=== PATIENT | female | born 1980 | race Caucasian/White ===

== ENCOUNTER 2017-05-13 10:42 | Observation (INO) | payer OTHER ==
[2017-05-13] MEDS ORDERED: ONDANSETRON 4 MG/2 ML VIAL IVP STA (11:16)
[2017-05-13] MEDS ORDERED: MORPHINE SULFATE 4MG/4ML SYRG IV STA (11:16)
[2017-05-13] MEDS ORDERED: KETOROLAC 30 MG/ML 1 ML VIAL IVP STA (11:16)
[2017-05-13] MEDS ORDERED: SODIUM CHLORIDE 0.9% 1,000 ML IV STA ×2 (11:16)
--- NOTE | 2017-05-13 11:22 | ED ---
Chest Pain HPI - General Chief Complaint: Chest Pain Stated Complaint: Chest Pain Time Seen by Provider: 05/13/17 11:02 Source: patient Mode of arrival: wheelchair Limitations: no limitations - History of Present Illness Initial Comments: 36-year-old years old female presents with the chest pain, started 7 AM today she been nauseous and vomited once in the ER cold sweats but then he gets little more complicated she is also complaining about left-sided abdominal pain left flank pain radiating towards the left groin she does have a history of kidney stones last time she said she had a kidney stones that was when she was in 2014. Denies any fever no chills she is not coughing she is not bringing up any phlegm no trauma to the chest chest pain is located in the center of the chest and it does not radiate anywhere she has no history of for pulmonary embolism or DVT does smoke and eyes any control pills family history is remarkable for coronary artery disease in her dad he had a heart disease in 50s and brother has a kidney stones - Related Data Home Medications Medication Instructions Recorded Confirmed Ranitidine HCl 300 mg PO HS 08/23/14 05/13/17 DULoxetine HCL [Cymbalta] 30 mg PO HS 05/13/17 05/13/17 DULoxetine HCL [Cymbalta] 60 mg PO DAILY 05/13/17 05/13/17 Ergocalciferol (Vitamin D2) 50,000 unit PO Q7D 05/13/17 05/13/17 [Vitamin D2] Allergies Allergy/AdvReac Type Severity Reaction Status Date / Time No Known Allergies Allergy Verified 05/13/17 11:22 Review of Systems ROS Statement: Those systems with pertinent positive or pertinent negative responses have been documented in the HPI. ROS Other: All systems not noted in ROS Statement are negative. EKG Findings - EKG Comments: EKG Findings:: I am EKG sinus bradycardia with ventricular rate is 53 NH interval is 144 QRS duration is 80 QT/QTc is 450/422 review of this EKG does not reveal any ST elevation or ST depression Past Medical History Past Medical History: GERD/Reflux Additional Past Medical History / Comment(s): cholestasis History of Any Multi-Drug Resistant Organisms: None Reported Past Surgical History: Adenoidectomy, Ear Surgery, Tonsillectomy, Tubal Ligation Past Anesthesia/Blood Transfusion Reactions: No Reported Reaction Past Psychological History: Anxiety, Depression Smoking Status: Current every day smoker Past Alcohol Use History: Rare Past Drug Use History: None Reported - Past Family History Father Family Medical History: Cancer, Hypertension General Exam - General Exam Comments Initial Comments: General: The patient is awake and in moderate distress because of the pain in the chest and the left flank area Skin: Skin is warm and dry and no rashes or lesions are noted. Eye: Pupils are equal, round and reactive to light, extra-ocular movements are intact; there is normal conjunctiva bilaterally. Ears, nose, mouth and throat: There are moist mucous membranes and no oral lesions. Neck: The neck is supple, there is no tenderness or JVD. Cardiovascular: There is a regular rate and rhythm. No murmur, rub or gallop is appreciated. Respiratory: To auscultation bilateral, no wheezing no rhonchi no distress respiratory moore noticed Gastrointestinal: Is tender over left flank area and the left upper quadrant area as well as tender over the left paraumbilical area over the left kidney positive bowel sounds no guarding no rebounds Back: There is no tenderness to palpation in the midline. There is no obvious deformity. Musculoskeletal: Normal ROM, no tenderness, There is no pedal edema. There is no calf tenderness or swelling. No cords were appreciated. Neurological: CN II-XII intact, Cranial nerves III through XII are intact. There are no obvious motor or sensory deficits. Coordination appears grossly intact. Speech is normal. Psychiatric: Cooperative, appropriate mood & affect, normal judgment. Limitations: no limitations Course Vital Signs 05/13/17 05/13/17 10:56 13:24 Temperature 96.9 F L 98.0 F Pulse Rate 58 L 64 Respiratory 16 16 Rate Blood Pressure 102/61 113/61 O2 Sat by Pulse 98 100 Oximetry Patiently assessed, a CBC, INR, troponin, chest x-ray, comp his metabolic panel are unremarkable S and has to get the urinalysis patient be dispositioned,, considering her risk factor and recommended that she ought to be observed overnight for 3 sets of cardiac markers and now cardiology consult and patient wants to leave him a he agreed to sign AMA I will refer her to cardiology as outpatient Educational casting done about smoking - Reevaluation(s) Reevaluation #1: Ur during reassessment noticed chest x-rays unremarkable EKG was troponin is unremarkable as well I urine was negative considering she is a 36 years old and she has smoked for almost 25 years and now hi dad had PR at a young age or couldn't I recommended that we keep her overnight for 3 sets of cardiac markers cardiology consult, 05/13/17 13:35 Disposition Clinical Impression: Chest pain, Abdominal pain Disposition: Left Against Medical Advice Condition: Good Referrals: Gianluca Gasca MD [Primary Care Provider] - 1-2 days Jim Witt MD [STAFF PHYSICIAN] - 1-2 days
[2017-05-13] MEDS ORDERED: SODIUM CHLORIDE 0.9% 1,000 ML IV ONE (11:23)
[2017-05-13 11:55] LABS: Basophils # (A) 0.1 k/uL (0-0.2); Basophils % (A) 1 %; Eosinophils # (A) 0.1 k/uL (0-0.7); Eosinophils % (A) 1 %; HCT 39.2 % (34.0-46.0); HGB 13.4 gm/dL (11.4-16.0); Lymphocytes # (A) 0.9 k/uL (1.0-4.8); Lymphocytes % (A) 10 %; MCH 32.5 pg (25.0-35.0); MCHC 34.1 g/dL (31.0-37.0); MCV 95.2 fL (80.0-100.0); Mean Platelet Volume 7.4; Monocytes # (A) 0.3 k/uL (0-1.0); Monocytes % (A) 4 %; Neutrophils # (A) 6.9 k/uL (1.3-7.7); Neutrophils % (A) 83 %; Platelet Count 290 k/uL (150-450); RBC 4.12 m/uL (3.80-5.40); RDW 11.8 % (11.5-15.5); WBC 8.3 k/uL (3.8-10.6)
[2017-05-13 12:02] LABS: ALT 40 U/L (9-52); AST 30 U/L (14-36); Albumin 4.3 g/dL (3.5-5.0); Alkaline Phosphatase 67 U/L (38-126); Amylase 49 U/L (30-110); Anion Gap 9 mmol/L; Blood Urea Nitrogen 17 mg/dL (7-17); Calcium 9.5 mg/dL (8.4-10.2); Carbon Dioxide 27 mmol/L (22-30); Chloride 105 mmol/L (98-107); Glucose 117 mg/dL (74-99); Lipase 54 U/L (23-300); Potassium 4.6 mmol/L (3.5-5.1); Sodium 141 mmol/L (137-145); Total Bilirubin 0.6 mg/dL (0.2-1.3); Total Protein 7.1 g/dL (6.3-8.2)
[2017-05-13 12:13] LABS: Partial Thromboplastin Time 23.1 sec (22.0-30.0); Prothrombin Time 10.2 sec (9.0-12.0)
--- NOTE | 2017-05-13 12:22 | XR ---
EXAMINATION TYPE: XR chest 2V DATE OF EXAM: 05/13/2017 COMPARISON: None HISTORY: 36 year-old female shortness of breath and chest pain TECHNIQUE: Frontal and lateral views FINDINGS: The cardiomediastinal silhouette, aorta, and pulmonary vasculature are within normal limits. Lungs an d pleural spaces are clear. IMPRESSION: No acute cardiopulmonary process.
[2017-05-13 12:28] LABS: Creatine Kinase 63 U/L (30-135)
[2017-05-13 12:42] LABS: Creatine Kinase MB 0.7 ng/mL (0.0-2.4); Troponin I <0.012 ng/mL (0.000-0.034)
[2017-05-13 13:22] LABS: Appearance,Urine Cloudy (Clear); Bilirubin,Urine Negative (Negative); Blood,Urine Negative (Negative); Color,Urine Yellow; Glucose,Urine (UA) Negative (Negative); Ketones,Urine 1+ (Negative); Leukocyte Esterase,Urine Negative (Negative); Mucus,Urine Few /hpf; Nitrite,Urine Negative (Negative); PH, Urine 6.5 (5.0-8.0); Protein,Urine Trace (Negative); RBC,Urine 1 /hpf (0-5); Specific Gravity,Urine 1.022 (1.001-1.035); Squamous Epithelial Cell,Urine 13 /hpf (0-4); WBC,Urine 2 /hpf (0-5)
[2017-05-13] MEDS ORDERED: MORPHINE ORAL SOLN 10 MG/5 ML CUP PO PRN (14:10)
[2017-05-13] MEDS ORDERED: NITROGLYCERIN SL TABS 0.4 MG TAB SUBLINGUAL PRN (14:10)
[2017-05-13 17:44] LABS: Creatine Kinase 63 U/L (30-135)
[2017-05-13 17:57] LABS: Creatine Kinase MB 0.8 ng/mL (0.0-2.4); Troponin I <0.012 ng/mL (0.000-0.034)
[2017-05-13] MEDS ORDERED: ERGOCALCIFEROL 50,000 UNIT CAP PO SCH (18:30)
[2017-05-13] MEDS ORDERED: ACETAMINOPHEN TAB 325 MG TAB PO PRN (19:39)
[2017-05-13 20:10] VITALS: RESP 18
[2017-05-13] MEDS ORDERED: FAMOTIDINE 20 MG TAB PO SCH (21:00)
[2017-05-13] MEDS ORDERED: DULoxetine HCL 30 MG CAPSULE.DR PO SCH (21:00)
[2017-05-13 23:55] LABS: Creatine Kinase 72 U/L (30-135)
[2017-05-14 00:07] LABS: Troponin I <0.012 ng/mL (0.000-0.034)
[2017-05-14 03:12] LABS: Cholesterol 187 mg/dL (<200); HDL Cholesterol 53 mg/dL (40-60); LDL Cholesterol,Calculated 121 mg/dL (0-99); Triglycerides 66 mg/dL (<150)
[2017-05-14] MEDS ORDERED: DULoxetine HCL 60 MG CAPSULE.DR PO SCH (09:00)
[2017-05-14] MEDS ORDERED: ASPIRIN 325 MG TAB PO SCH (09:00)
--- NOTE | 2017-05-14 10:08 | CONS ---
CONSULTATION Mirella Moon is a 36-year-old female who presented to the emergency room complaining of chest discomfort and shortness of breath, nausea and vomiting. She then started experiencing left-sided abdominal discomfort that radiated down to the groin. The discomfort actually fell like a GERD-like sensation and was associated with abdominal pain. She feels this is similar to what she had when she had a kidney stone. She has had these episodes before. No dizziness, lightheadedness. MEDICATIONS: Her home medications are reviewed and include ranitidine, Cymbalta. ALLERGIES: No known drug allergies. REVIEW OF SYSTEMS: No fever, chills, or rigors. No cough or expectoration. She has nausea, vomiting, abdominal discomfort. No hematuria or dysuria. No strokes or seizures. FAMILY HISTORY: Family history of heart disease. SOCIAL HISTORY: She is a current daily smoker. PAST MEDICAL HISTORY: Past medical history of GERD. PHYSICAL EXAMINATION: On examination, blood pressure is 110/57 mmHg, temperature 98.9 degree Fahrenheit. Head and neck examination is normal. Heart sounds normal. Normal S1, normal S2. Breath sounds are clear. No rhonchi, no crackles. Extremities are warm, no edema. LABS: Labs are reviewed and the cardiac enzymes x3 are normal. LDL is 121, total cholesterol 187, HDL 53. Amylase, lipase are normal. White count is normal. Hemoglobin is normal. IMPRESSION: 1. Atypical chest discomfort in association with abdominal pain and nausea, vomiting. 2. No evidence for myocardial injury. EKG is completely normal and does not show any ST-segment abnormalities. Heart rate is 53 beats per minute. PLAN: Plan is a 2-D echo and Doppler study and check D-dimers and medical workup thereafter if abnormal. Evaluation of abdominal pain, nausea and vomiting. Outpatient followup with Cardiology. MMODL / IJN: [id number] /
--- NOTE | 2017-05-14 11:22 | ECHOF ---
Referral Reason:chest pain MEASUREMENTS -------- HEIGHT: 165.1 cm WEIGHT: 70.3 kg BP: RVIDd: 2.3 cm (< 3.3) IVSd: 1.2 cm (0.6 - 1.1) LVIDd: 4.2 cm (3.9 - 5.3) LVPWd: 1.2 cm (0.6 - 1.1) IVSs: 1.4 cm LVIDs: 3.3 cm LVPWs: 1.2 cm LA Diam: 2.8 cm (2.7 - 3.8) LAESV Index (A-L): 27.68 ml/m Ao Diam: 2.5 cm (2.0 - 3.7) AV Cusp: 1.5 cm (1.5 - 2.6) LA Diam: 3.6 cm (2.7 - 3.8) MV EXCURSION: 18.525 mm (> 18.000) MV EF SLOPE: 125 mm/s (70 - 150) EPSS: 0.2 cm MV E John: 0.82 m/s MV DecT: 181 ms MV A John: 0.73 m/s MV E/A Ratio: 1.13 FINDINGS -------- Sinus rhythm. This was a technically good study. The left ventricular size is normal. There is borderline concentric left ventricular hypertrophy. Overall left ventricular systolic function is normal with, an EF between 55 - 60 %. The right ventricle is normal in size. The left atrial size is normal. Normal LA size by volume 22+/-6 ml/m2. The right atrial size is normal. There is mild aortic valve sclerosis. There is no evidence of aortic regurgitation. Mild mitral annular calcification present. Mild mitral regurgitation is present. Mild tricuspid regurgitation present. There is no evidence of pulmonary hypertension. The right v entricular systolic pressure, as measured by Doppler, is {RVSP}. There is no pulmonic regurgitation present. The aortic root size is normal. There is no pericardial effusion. CONCLUSIONS -------- 1. The left ventricular size is normal. 2. There is borderline concentric left ventricular hypertrophy. 3. Overall left ventricular systolic function is normal with, an EF between 55 - 60 %. 4. There is mild aortic valve sclerosis. 5. Mild mitral annular calcification present. 6. Mild mitral regurgitation is present. 7. Mild tricuspid regurgitation present. 8. There is no evidence of pulmonary hypertension. 9. The right ventricular systolic pressure, as measured by Doppler, is {RVSP}. 10. There is no pulmonic regurgitation present. 11. The aortic root size is normal. 12. There is no pericardial effusion. ETIOLOGY TEACHER: Demetria Babcock RDCS
[2017-05-14 11:24] VITALS: BP 115/67; PULSE 77; TEMP 97.8
--- NOTE | 2017-05-14 14:17 | P.HPIM ---
History of Present Illness H&P Date: 05/14/17 This is a 36-year-old female patient of Dr. Pedro kat with past medical history of gastroesophageal reflux disease, kidney stones and cholecystitis while she was . Patient states she developed chest pain at 7 in the morning along with nausea and vomiting. She had pain in her epigastric area and also to the lateral left chest area that went down into her abdomen as well. Her whole body went numb and she had nausea with hot and cold chills. She does have history of gastric reflux and ranitidine does improve this. She states she is under a lot of stress every day with 4 kids and home life. She denies having any fever or chills. No cough or sputum production. Patient was given morphine, Toradol, Zofran and 2 L of IV fluid. Echocardiogram reveals EF of 55-60% with borderline concentric left ventricular hypertrophy, mild mitral regurgitation, mild tricuspid regurgitation, no pulmonary hypertension. Troponins were negative on 3 draws. Triglycerides 66, cholesterol 187, LDL 121 and HDL 53. Amylase 49 and lipase was 54. Urinalysis cloudy, nitrate and leukoesterase were negative. Urine hCG was negative. Patient was seen by Dr. Desir and recommended outpatient follow-up with cardiology. Patient will be discharged home today in stable condition. Review of Systems All systems: negative Constitutional: Denies anorexia, Denies chills, Denies fatigue, Denies fever, Denies poor appetite Eyes: denies blurred vision, denies pain Ears, nose, mouth and throat: Denies dysphagia, Denies headache, Denies mouth pain, Denies sore throat Cardiovascular: Reports chest pain, Denies decreased exercise tolerance, Denies dyspnea on exertion, Denies edema, Denies leg edema, Denies lightheadedness, Denies shortness of breath, Denies syncope Respiratory: Denies cough, Denies cough with sputum, Denies dyspnea, Denies excessive sputum, Denies hemoptysis, Denies home oxygen, Denies wheezing Gastrointestinal: Reports abdominal pain, Denies diarrhea, Denies loss of appetite, Denies melena, Denies nausea, Denies vomiting Genitourinary: Denies dysuria, Denies hematuria, Denies urgency, Denies urinary frequency Musculoskeletal: Denies myalgias Integumentary: Denies pruritus, Denies rash Neurological: Denies numbness, Denies weakness Psychiatric: Denies anxiety, Denies depression Endocrine: Denies fatigue, Denies weight change Past Medical History Past Medical History: GERD/Reflux Additional Past Medical History / Comment(s): cholestasis OF , KIDNEY STONES History of Any Multi-Drug Resistant Organisms: None Reported Past Surgical History: Adenoidectomy, Ear Surgery, Tonsillectomy, Tubal Ligation Past Anesthesia/Blood Transfusion Reactions: Motion Sickness Additional Past Anesthesia/Blood Transfusion Reaction / Comment(s): CLAUSTERPHOBIA Smoking Status: Current every day smoker Additional Past Alcohol Use History / Comment(s): Patient is a smoker one pack per day since she was 12 years of age. She denies any marijuana, street drug use or alcohol use. She works as a instructor of spanish. - Past Family History Mother Family Medical History: Diabetes Mellitus, Fibromyalgia, Hypertension Additional Family Medical History / Comment(s): Mother is alive with chronic back pain, osteoarthritis, OBESITY Father Family Medical History: Cancer, Hypertension Additional Family Medical History / Comment(s): Father had a myocardial infarction in his 50s status post stent. Brother(s) Additional Family Medical History / Comment(s): Patient has 4 brothers and one had a stroke in age 42. One brother has gallbladder problems. Patient does not have any sisters. Medications and Allergies Home Medications Medication Instructions Recorded Confirmed Type Ranitidine HCl 300 mg PO HS 08/23/14 05/13/17 History DULoxetine HCL [Cymbalta] 30 mg PO HS 05/13/17 05/13/17 History DULoxetine HCL [Cymbalta] 60 mg PO DAILY 05/13/17 05/13/17 History Ergocalciferol (Vitamin D2) 50,000 unit PO Q7D 05/13/17 05/13/17 History [Vitamin D2] Allergies Allergy/AdvReac Type Severity Reaction Status Date / Time No Known Allergies Allergy Verified 05/13/17 11:22 Physical Exam Vitals: Vital Signs Temp Pulse Pulse Resp BP BP Pulse Ox 05/14/17 08:00 18 05/14/17 07:41 98.9 F 86 18 110/57 98 05/14/17 04:00 98.4 F 83 18 109/61 97 05/14/17 03:45 18 05/13/17 23:41 18 05/13/17 23:08 98.8 F 90 18 108/59 98 05/13/17 20:00 98.6 F 83 18 107/60 97 05/13/17 15:53 98.1 F 60 16 107/71 99 05/13/17 15:13 98.6 F 64 16 118/78 98 05/13/17 14:41 98.3 F 62 16 116/63 99 05/13/17 13:24 98.0 F 64 16 113/61 100 05/13/17 10:56 96.9 F L 58 L 16 102/61 98 Intake and Output 05/13/17 05/14/17 05/14/17 22:59 06:59 14:59 Intake Total 240 Balance 240 Intake: Oral 240 Other: # Voids 1 Weight 70.5 kg Gen: This is a obese 36-year-old female. She is sitting up in bed and appears to be in no acute distress. HEENT: Head is atraumatic, normocephalic. Pupils equal, round. Sclerae is anicteric. NECK: Supple. No JVD. No lymphadenopathy. No thyromegaly. LUNGS: Clear to auscultation. No wheezes or rhonchi. No intercostal retractions. HEART: Regular rate and rhythm. No murmur. ABDOMEN: Soft. Bowel sounds are present. No masses. No tenderness. EXTREMITIES: No pedal edema. No calf tenderness. Dorsalis pedis +2 bilaterally. NEUROLOGICAL: Patient is awake, alert and oriented x3. Cranial nerves 2 through 12 are grossly intact. Results CBC & Chem 7: 05/13/17 11:38 05/13/17 11:38 Labs: Abnormal Lab Results - Last 24 Hours (Table) 05/13/17 05/13/17 05/13/17 Range/Units 11:38 11:38 11:38 Lymphocytes # 0.9 L (1.0-4.8) k/uL D-Dimer (<0.60) mg/L FEU Glucose 117 H (74-99) mg/dL LDL Cholesterol, Calc 121 H (0-99) mg/dL Urine Appearance (Clear) Urine Protein (Negative) Urine Ketones (Negative) Ur Squamous Epith Cells (0-4) /hpf Urine Mucus (None) /hpf 05/13/17 05/14/17 Range/Units 13:05 08:05 Lymphocytes # (1.0-4.8) k/uL D-Dimer 0.71 H (<0.60) mg/L FEU Glucose (74-99) mg/dL LDL Cholesterol, Calc (0-99) mg/dL Urine Appearance Cloudy H (Clear) Urine Protein Trace H (Negative) Urine Ketones 1+ H (Negative) Ur Squamous Epith Cells 13 H (0-4) /hpf Urine Mucus Few H (None) /hpf Thrombosis Risk Factor Assmnt - Choose All That Apply Any of the Below Risk Factors Present?: Yes Other Risk Factors: No Other congenital or acquired thrombophilia - If yes, enter type in comment: No Assessment and Plan Plan: 1. Chest pain, noncardiac. Possibly related to gastroesophageal reflux disease or gallbladder disease. Outpatient gallbladder ultrasound to be done. 2. Gastroesophageal reflux disease. Continue Zantac at home dose. Patient placed as an observation stay. Discharge plan: home Impression and plan of care have been directed as dictated by the signing physician. Cristina Vieira nurse practitioner acting as scribe for signing physician.
== END 2017-05-14 12:20 | disposition home or self-care (01) ==
LOC: EC 10:42 → 3OBS 14:10
PROVIDERS: ADMIT Internal Medicine Geriatric Medicine; ATTEND Internal Medicine Geriatric Medicine
DX: R07.89 Other chest pain (principal); R11.2 Nausea with vomiting, unspecified; R06.02 Shortness of breath; R61 Generalized hyperhidrosis; K21.9 Gastro-esophageal reflux disease without esophagitis; R68.83 Chills (without fever); R20.0 Anesthesia of skin; F41.9 Anxiety disorder, unspecified; F32.9 Major depressive disorder, single episode, unspecified; Z87.442 Personal history of urinary calculi; F17.210 Nicotine dependence, cigarettes, uncomplicated; Z83.3 Family history of diabetes mellitus; Z82.49 Family history of ischemic heart disease and other diseases of the circulatory system; Z82.3 Family history of stroke; Z82.61 Family history of arthritis; Z80.9 Family history of malignant neoplasm, unspecified; Z79.899 Other long term (current) drug therapy; E66.9 Obesity, unspecified; Z68.25 Body mass index [BMI] 25.0-25.9, adult
CPT/HCPCS: 99285 ×2; 96374 ×2; 96375 ×3; 96361 ×7; 36415; 93005; 93306; 85379; 80061; 80053; 82150; 82550; 82553; 83690; 83735; 84484; 85025; 85610; 85730; 81001; 81025; 71046; G0378 ×2; J2405; J1885; J2270

== ENCOUNTER 2017-05-15 10:25 | Inpatient (IN) | payer OTHER ==
[2017-05-15] MEDS ORDERED: SODIUM CHLORIDE 0.9% 500 ML IV STA (11:12)
[2017-05-15] MEDS ORDERED: KETOROLAC 30 MG/ML 1 ML VIAL IVP STA (11:12)
[2017-05-15] MEDS ORDERED: ONDANSETRON 4 MG/2 ML VIAL IVP STA (11:12)
[2017-05-15] MEDS ORDERED: PANTOPRAZOLE 40 MG/10 ML VIAL IVP STA (11:12)
[2017-05-15 11:46] LABS: Basophils # (A) 0.1 k/uL (0-0.2); Basophils % (A) 1 %; Eosinophils # (A) 0.1 k/uL (0-0.7); Eosinophils % (A) 1 %; HCT 37.5 % (34.0-46.0); HGB 12.9 gm/dL (11.4-16.0); Lymphocytes # (A) 1.1 k/uL (1.0-4.8); Lymphocytes % (A) 10 %; MCH 32.5 pg (25.0-35.0); MCHC 34.3 g/dL (31.0-37.0); MCV 94.6 fL (80.0-100.0); Mean Platelet Volume 7.5; Monocytes # (A) 0.5 k/uL (0-1.0); Monocytes % (A) 5 %; Neutrophils # (A) 8.9 k/uL (1.3-7.7); Neutrophils % (A) 82 %; Platelet Count 274 k/uL (150-450); RBC 3.96 m/uL (3.80-5.40); RDW 11.9 % (11.5-15.5); WBC 10.9 k/uL (3.8-10.6)
[2017-05-15 11:49] LABS: Appearance,Urine Clear (Clear); Bilirubin,Urine Negative (Negative); Blood,Urine Negative (Negative); Color,Urine Yellow; Glucose,Urine (UA) Negative (Negative); Ketones,Urine 1+ (Negative); Leukocyte Esterase,Urine Trace (Negative); Mucus,Urine Rare /hpf; Nitrite,Urine Negative (Negative); PH, Urine 6.5 (5.0-8.0); Protein,Urine Negative (Negative); RBC,Urine 1 /hpf (0-5); Specific Gravity,Urine 1.017 (1.001-1.035); Squamous Epithelial Cell,Urine 5 /hpf (0-4); WBC,Urine 1 /hpf (0-5)
[2017-05-15 11:58] LABS: ALT 44 U/L (9-52); AST 29 U/L (14-36); Alkaline Phosphatase 81 U/L (38-126); Amylase 39 U/L (30-110); Anion Gap 11 mmol/L; Blood Urea Nitrogen 13 mg/dL (7-17); Calcium 9.4 mg/dL (8.4-10.2); Carbon Dioxide 25 mmol/L (22-30); Chloride 105 mmol/L (98-107); Glucose 99 mg/dL (74-99); Lipase 33 U/L (23-300); Potassium 3.9 mmol/L (3.5-5.1); Sodium 141 mmol/L (137-145); Total Bilirubin 0.9 mg/dL (0.2-1.3); Total Protein 6.9 g/dL (6.3-8.2)
--- NOTE | 2017-05-15 12:19 | ED ---
General Adult HPI - General Chief complaint: Abdominal Pain Stated complaint: Abd Pain Time Seen by Provider: 05/15/17 10:55 Source: patient, RN notes reviewed, old records reviewed Mode of arrival: ambulatory Limitations: no limitations - History of Present Illness Initial comments: This is a 28-year-old female the ER for evaluation. Patient was essay for evaluation regarding abdominal pain. Epigastric bowel pain rating around right side. Patient states she has history of gallstones no gallbladder surgery, no prior evaluation recently. Patient states she had an evaluation for chest pain , no acute results found. This pain is different, mild nausea no vomiting no fevers. No recent diarrhea - Related Data Home Medications Medication Instructions Recorded Confirmed Ranitidine HCl 300 mg PO HS 08/23/14 05/15/17 DULoxetine HCL [Cymbalta] 30 mg PO HS 05/13/17 05/15/17 DULoxetine HCL [Cymbalta] 60 mg PO DAILY 05/13/17 05/15/17 Allergies Allergy/AdvReac Type Severity Reaction Status Date / Time No Known Allergies Allergy Verified 05/15/17 12:52 Review of Systems ROS Statement: Those systems with pertinent positive or pertinent negative responses have been documented in the HPI. ROS Other: All systems not noted in ROS Statement are negative. Past Medical History Past Medical History: GERD/Reflux Additional Past Medical History / Comment(s): cholestasis OF , KIDNEY STONES History of Any Multi-Drug Resistant Organisms: None Reported Past Surgical History: Adenoidectomy, Ear Surgery, Tonsillectomy, Tubal Ligation Past Anesthesia/Blood Transfusion Reactions: Motion Sickness Additional Past Anesthesia/Blood Transfusion Reaction / Comment(s): CLAUSTERPHOBIA Past Psychological History: Anxiety, Depression Smoking Status: Current every day smoker Past Alcohol Use History: None Reported Past Drug Use History: None Reported - Past Family History Mother Family Medical History: Diabetes Mellitus, Fibromyalgia, Hypertension Additional Family Medical History / Comment(s): Mother is alive with chronic back pain, osteoarthritis, OBESITY Brother(s) Additional Family Medical History / Comment(s): Patient has 4 brothers and one had a stroke in age 42. One brother has gallbladder problems. Patient does not have any sisters. Father Family Medical History: Cancer, Hypertension Additional Family Medical History / Comment(s): Father had a myocardial infarction in his 50s status post stent. General Exam Limitations: no limitations General appearance: alert, in no apparent distress Head exam: Present: atraumatic, normocephalic, normal inspection Eye exam: Present: normal appearance, PERRL, EOMI. Absent: scleral icterus, conjunctival injection, periorbital swelling ENT exam: Present: normal exam, mucous membranes moist Neck exam: Present: normal inspection. Absent: tenderness, meningismus, lymphadenopathy Respiratory exam: Present: normal lung sounds bilaterally. Absent: respiratory distress, wheezes, rales, rhonchi, stridor Cardiovascular Exam: Present: regular rate, normal rhythm, normal heart sounds. Absent: systolic murmur, diastolic murmur, rubs, gallop, clicks GI/Abdominal exam: Present: soft, tenderness (Epigastric), normal bowel sounds. Absent: distended, guarding, rebound, rigid Extremities exam: Present: normal inspection, full ROM, normal capillary refill. Absent: tenderness, pedal edema, joint swelling, calf tenderness Back exam: Present: normal inspection Neurological exam: Present: alert, oriented X3, CN II-XII intact Psychiatric exam: Present: normal affect, normal mood Skin exam: Present: warm, dry, intact, normal color. Absent: rash Course Vital Signs 05/15/17 10:32 Temperature 97.8 F Pulse Rate 69 Respiratory 18 Rate Blood Pressure 121/81 O2 Sat by Pulse 100 Oximetry - Reevaluation(s) Reevaluation #1: 05/15/17 12:18 This week patient had earlier ER visit for an hospitalization for chest pain, records reviewed Reevaluation #2: 05/15/17 12:18 Patient has adequate pain control at this time Medical Decision Making - Medical Decision Making 28 female positive ultrasound evaluation regarding gallbladder, positive cholecystitis patient will admit to operating room for eval for treatment, Dr. Woodward - Lab Data Result diagrams: 05/15/17 11:29 05/15/17 11:29 Lab Results 05/15/17 05/15/17 05/15/17 Range/Units 11:29 11:29 11:29 WBC 10.9 H (3.8-10.6) k/uL RBC 3.96 (3.80-5.40) m/uL Hgb 12.9 (11.4-16.0) gm/dL Hct 37.5 (34.0-46.0) % MCV 94.6 (80.0-100.0) fL MCH 32.5 (25.0-35.0) pg MCHC 34.3 (31.0-37.0) g/dL RDW 11.9 (11.5-15.5) % Plt Count 274 (150-450) k/uL Neutrophils % 82 % Lymphocytes % 10 % Monocytes % 5 % Eosinophils % 1 % Basophils % 1 % Neutrophils # 8.9 H (1.3-7.7) k/uL Lymphocytes # 1.1 (1.0-4.8) k/uL Monocytes # 0.5 (0-1.0) k/uL Eosinophils # 0.1 (0-0.7) k/uL Basophils # 0.1 (0-0.2) k/uL Sodium 141 (137-145) mmol/L Potassium 3.9 (3.5-5.1) mmol/L Chloride 105 (98-107) mmol/L Carbon Dioxide 25 (22-30) mmol/L Anion Gap 11 mmol/L BUN 13 (7-17) mg/dL Creatinine 0.63 (0.52-1.04) mg/dL Est GFR (CKD-EPI)AfAm >90 (>60 ml/min/1.73 sqM) Est GFR (CKD-EPI)NonAf >90 (>60 ml/min/1.73 sqM) Glucose 99 (74-99) mg/dL Calcium 9.4 (8.4-10.2) mg/dL Total Bilirubin 0.9 (0.2-1.3) mg/dL AST 29 (14-36) U/L ALT 44 (9-52) U/L Alkaline Phosphatase 81 (38-126) U/L Total Creatine Kinase 62 (30-135) U/L CK-MB (CK-2) 0.7 (0.0-2.4) ng/mL CK-MB (CK-2) Rel Index 1.1 Troponin I <0.012 (0.000-0.034) ng/mL Total Protein 6.9 (6.3-8.2) g/dL Albumin 4.0 (3.5-5.0) g/dL Amylase 39 (30-110) U/L Lipase 33 (23-300) U/L Urine Color Urine Appearance (Clear) Urine pH (5.0-8.0) Ur Specific Leburn (1.001-1.035) Urine Protein (Negative) Urine Glucose (UA) (Negative) Urine Ketones (Negative) Urine Blood (Negative) Urine Nitrite (Negative) Urine Bilirubin (Negative) Urine Urobilinogen (<2.0) mg/dL Ur Leukocyte Esterase (Negative) Urine RBC (0-5) /hpf Urine WBC (0-5) /hpf Ur Squamous Epith Cells (0-4) /hpf Urine Mucus (None) /hpf Urine HCG, Qual (Not Detectd) 05/15/17 05/15/17 Range/Units 11:29 11:29 WBC (3.8-10.6) k/uL RBC (3.80-5.40) m/uL Hgb (11.4-16.0) gm/dL Hct (34.0-46.0) % MCV (80.0-100.0) fL MCH (25.0-35.0) pg MCHC (31.0-37.0) g/dL RDW (11.5-15.5) % Plt Count (150-450) k/uL Neutrophils % % Lymphocytes % % Monocytes % % Eosinophils % % Basophils % % Neutrophils # (1.3-7.7) k/uL Lymphocytes # (1.0-4.8) k/uL Monocytes # (0-1.0) k/uL Eosinophils # (0-0.7) k/uL Basophils # (0-0.2) k/uL Sodium (137-145) mmol/L Potassium (3.5-5.1) mmol/L Chloride (98-107) mmol/L Carbon Dioxide (22-30) mmol/L Anion Gap mmol/L BUN (7-17) mg/dL Creatinine (0.52-1.04) mg/dL Est GFR (CKD-EPI)AfAm (>60 ml/min/1.73 sqM) Est GFR (CKD-EPI)NonAf (>60 ml/min/1.73 sqM) Glucose (74-99) mg/dL Calcium (8.4-10.2) mg/dL Total Bilirubin (0.2-1.3) mg/dL AST (14-36) U/L ALT (9-52) U/L Alkaline Phosphatase (38-126) U/L Total Creatine Kinase (30-135) U/L CK-MB (CK-2) (0.0-2.4) ng/mL CK-MB (CK-2) Rel Index Troponin I (0.000-0.034) ng/mL Total Protein (6.3-8.2) g/dL Albumin (3.5-5.0) g/dL Amylase (30-110) U/L Lipase (23-300) U/L Urine Color Yellow Urine Appearance Clear (Clear) Urine pH 6.5 (5.0-8.0) Ur Specific Leburn 1.017 (1.001-1.035) Urine Protein Negative (Negative) Urine Glucose (UA) Negative (Negative) Urine Ketones 1+ H (Negative) Urine Blood Negative (Negative) Urine Nitrite Negative (Negative) Urine Bilirubin Negative (Negative) Urine Urobilinogen 3.0 (<2.0) mg/dL Ur Leukocyte Esterase Trace H (Negative) Urine RBC 1 (0-5) /hpf Urine WBC 1 (0-5) /hpf Ur Squamous Epith Cells 5 H (0-4) /hpf Urine Mucus Rare H (None) /hpf Urine HCG, Qual Not Detected (Not Detectd) - Radiology Data Radiology results: report reviewed (Ultrasound positive acute cholecystitis), image reviewed Disposition Clinical Impression: Abdominal pain, Acute cholecystitis Disposition: ADMITTED IP TO THIS [facility] Condition: Good Referrals: Gianluca Gasca MD [Primary Care Provider] - 1-2 days
[2017-05-15 12:22] LABS: Creatine Kinase 62 U/L (30-135)
[2017-05-15 12:33] LABS: Creatine Kinase MB 0.7 ng/mL (0.0-2.4); Troponin I <0.012 ng/mL (0.000-0.034)
--- NOTE | 2017-05-15 12:36 | US ---
EXAMINATION TYPE: US gallbladder DATE OF EXAM: 05/15/2017 COMPARISON: Previous study dated 08/23/2014. CLINICAL HISTORY: Pain. Epigastric and RUQ pain. Nausea and vomiting. History of gallstones EXAM MEASUREMENTS: Liver Length: 15.6 cm Gallbladder Wall: 0.8 cm CBD: 0.3 cm Right Kidney: 10.4 x 4.0 x 5.9 cm Pancreas: Tail obscured by overlying bowel gas Liver: appears wnl Gallbladder: hydropic; at least 3 large stones, 1 located near the neck, solid component noted at fu ndus with the other 2 stones; thickened edematous wall Evidence for sonographic Cannon's sign: Yes CBD: visualized portion appears wnl Right Kidney: no evidence of hydronephrosis or mass Limited views of the pancreas are unremarkable. The liver is normal in size without biliary dilatation. The gallbladder is distended and contains at least 2 gallstones. The gallbladder wall is grossly thic kened measuring 8 mm. The distal common hepatic duct measures 3 mm. There is a positive sonographic M urphy's sign. Right kidney is unremarkable. IMPRESSION: CHOLELITHIASIS AND PROBABLE ACUTE CHOLECYSTITIS.
[2017-05-15] MEDS ORDERED: PIPERACILLIN-TAZOBACTAM 3.375 GM in DEXTROSE/WATER 1 50ML.BAG IVPB STA (13:33)
[2017-05-15 14:31] VITALS: BMI 26.9
--- NOTE | 2017-05-15 15:28 | P.GSHP ---
History of Present Illness H&P Date: 05/15/17 CHIEF COMPLAINT: Right upper quadrant abdominal pain HISTORY OF PRESENT ILLNESS: The patient is a 36-year-old female who presents with acute onset right upper quadrant abdominal pain in the last 24+ hours. Incidentally, she was just in the emergency room yesterday for chest pain. She had a full cardiology workup which was negative. Separately she reports a family history of gallbladder disease in her grandmother including her brother who had their gallbladders removed. She does report gastroesophageal reflux disease. Prior to arrival to the emergency room, she had meatloaf, mashed potatoes and gravy where she often avoids gravy hence her symptoms followed several hours later. As result of her ultrasound demonstrating hydrops cholecystitis, she has been admitted. PAST MEDICAL HISTORY: See list. PAST SURGICAL HISTORY: See list. MEDICATIONS: See list. ALLERGIES: See list. SOCIAL HISTORY: Family is at bedside, her son. No illicit drug use. Tobacco use. FAMILY HISTORY: Consistent with gallbladder disease. REVIEW OF ORGAN SYSTEMS: CONSTITUTIONAL: No fevers or chills HEENT: No troubles with vision or hearing. No reports of dysphagia. ENDOCRINE: No reports of thyroid disorders. No diabetes. CARDIOVASCULAR: Recent cardiac workup negative for myocardial infarction. RESPIRATORY: No asthma or pneumonia. GASTROINTESTINAL: No reports of recent blood in stools. Has gastroesophageal reflux disease NEURO: No reports of stroke or seizure disorders. PSYCH: Has depression. No suicidal ideation. Has anxiety. HEMATOLOGIC: No easy bruising or bleeding LYMPHATIC: The patient denies any lumps and bumps around the neck. GENITOURINARY: Denies any blood in urine or increased urinary frequency. MUSCULOSKELETAL: Has back pain, stiffness or joint arthritis. PHYSICAL EXAM: VITAL SIGNS: Currently stable. GENERAL: Well-developed male in no acute distress. HEENT: No sclera icterus. Extraocular movements grossly intact. Moist buccal mucosa. Head is atraumatic, normocephalic. Hears conversational speech. No nasal drainage. NECK: Supple without lymphadenopathy. CHEST: Non-labored respirations and equal bilateral excursions. CARDIOVASCULAR: Regular rate with regular rhythm. Palpable 2+ radial pulses. ABDOMEN: Soft. Nondistended. Obese. Right upper quadrant tenderness. MUSCULOSKELETAL: No clubbing, cyanosis or edema. NEUROLOGIC: No focal or lateralizing signs. Cranial nerves II through XII grossly intact. PSYCH: Appropriate affect. Alert and oriented to person, place and time. LABS: Reviewed ASSESSMENT: 1. Right upper quadrant abdominal pain. 2. Acute cholecystitis with gallstones PLAN: 1. Benefits and risks of robotic cholecystectomy described in detail. 2. Low-fat diet today. 3. Recommend IV antibiotics for acute cholecystitis 4. Inpatient hospitalization for hydrops cholecystitis, greater than 2 nights. Past Medical History Past Medical History: GERD/Reflux Additional Past Medical History / Comment(s): cholestasis OF , KIDNEY STONES History of Any Multi-Drug Resistant Organisms: None Reported Past Surgical History: Adenoidectomy, Ear Surgery, Tonsillectomy, Tubal Ligation Past Anesthesia/Blood Transfusion Reactions: Motion Sickness Additional Past Anesthesia/Blood Transfusion Reaction / Comment(s): CLAUSTERPHOBIA Past Psychological History: Anxiety, Depression Smoking Status: Current every day smoker Past Alcohol Use History: None Reported Additional Past Alcohol Use History / Comment(s): STARTED SMOKING AT AGE 12 SMOKES 1 PPD. Past Drug Use History: None Reported - Past Family History Mother Family Medical History: Diabetes Mellitus, Fibromyalgia, Hypertension Additional Family Medical History / Comment(s): Mother is alive with chronic back pain, osteoarthritis, OBESITY Brother(s) Additional Family Medical History / Comment(s): Patient has 4 brothers and one had a stroke in age 42. One brother has gallbladder problems. Patient does not have any sisters. Father Family Medical History: Cancer, Hypertension Additional Family Medical History / Comment(s): Father had a myocardial infarction in his 50s status post stent. Medications and Allergies Home Medications Medication Instructions Recorded Confirmed Type Ranitidine HCl 300 mg PO HS 08/23/14 05/15/17 History DULoxetine HCL [Cymbalta] 30 mg PO HS 05/13/17 05/15/17 History DULoxetine HCL [Cymbalta] 60 mg PO DAILY 05/13/17 05/15/17 History Allergies Allergy/AdvReac Type Severity Reaction Status Date / Time No Known Allergies Allergy Verified 05/15/17 12:52 Surgical - Exam Vital Signs Temp Pulse Resp BP Pulse Ox 97.8 F 69 18 121/81 100 05/15/17 10:32 05/15/17 10:32 05/15/17 10:32 05/15/17 10:32 05/15/17 10:32 Results - Labs 05/15/17 11:29 05/15/17 11:29 Abnormal Lab Results - Last 24 Hours (Table) 05/15/17 05/15/17 Range/Units 11:29 11:29 WBC 10.9 H (3.8-10.6) k/uL Neutrophils # 8.9 H (1.3-7.7) k/uL Urine Ketones 1+ H (Negative) Ur Leukocyte Esterase Trace H (Negative) Ur Squamous Epith Cells 5 H (0-4) /hpf Urine Mucus Rare H (None) /hpf Diabetes panel 05/15/17 Range/Units 11:29 Sodium 141 (137-145) mmol/L Potassium 3.9 (3.5-5.1) mmol/L Chloride 105 (98-107) mmol/L Carbon Dioxide 25 (22-30) mmol/L BUN 13 (7-17) mg/dL Creatinine 0.63 (0.52-1.04) mg/dL Glucose 99 (74-99) mg/dL Calcium 9.4 (8.4-10.2) mg/dL AST 29 (14-36) U/L ALT 44 (9-52) U/L Alkaline Phosphatase 81 (38-126) U/L Total Protein 6.9 (6.3-8.2) g/dL Albumin 4.0 (3.5-5.0) g/dL Calcium panel 05/15/17 Range/Units 11:29 Calcium 9.4 (8.4-10.2) mg/dL Albumin 4.0 (3.5-5.0) g/dL Pituitary panel 05/15/17 Range/Units 11:29 Sodium 141 (137-145) mmol/L Potassium 3.9 (3.5-5.1) mmol/L Chloride 105 (98-107) mmol/L Carbon Dioxide 25 (22-30) mmol/L BUN 13 (7-17) mg/dL Creatinine 0.63 (0.52-1.04) mg/dL Glucose 99 (74-99) mg/dL Calcium 9.4 (8.4-10.2) mg/dL Adrenal panel 05/15/17 Range/Units 11:29 Sodium 141 (137-145) mmol/L Potassium 3.9 (3.5-5.1) mmol/L Chloride 105 (98-107) mmol/L Carbon Dioxide 25 (22-30) mmol/L BUN 13 (7-17) mg/dL Creatinine 0.63 (0.52-1.04) mg/dL Glucose 99 (74-99) mg/dL Calcium 9.4 (8.4-10.2) mg/dL Total Bilirubin 0.9 (0.2-1.3) mg/dL AST 29 (14-36) U/L ALT 44 (9-52) U/L Alkaline Phosphatase 81 (38-126) U/L Total Protein 6.9 (6.3-8.2) g/dL Albumin 4.0 (3.5-5.0) g/dL
[2017-05-15] MEDS ORDERED: METOCLOPRAMIDE 5 MG/ML 2 ML VIAL IVP PRN (15:30)
[2017-05-15] MEDS ORDERED: NALOXONE 0.4 MG/ML 1 ML VIAL IV PRN (15:30)
[2017-05-15] MEDS ORDERED: ACETAMINOPHEN IV (For NPO) 1,000 MG in EMPTY BAG 1 BAG IVPB ONE (15:30)
[2017-05-15] MEDS ORDERED: MORPHINE SULFATE 4MG/4ML SYRG IVP PRN (15:32)
[2017-05-15] MEDS: SODIUM CHLORIDE 0.9% 1,000 ML IV SCH (17:01)
[2017-05-15] MEDS: HYDROcodone/APAP 5-325MG 1 EACH TAB PO PRN ×2 (17:08→21:46)
[2017-05-15] MEDS: PIPERACILLIN-TAZOBACTAM 3.375 GM in DEXTROSE/WATER 1 50ML.BAG IVPB SCH (17:14)
[2017-05-15] MEDS: ENOXAPARIN 40 MG/0.4 ML SYRINGE SQ SCH (19:06)
[2017-05-15] MEDS: DULoxetine HCL 30 MG CAPSULE.DR PO SCH (20:06)
[2017-05-16] MEDS: PIPERACILLIN-TAZOBACTAM 3.375 GM in DEXTROSE/WATER 1 50ML.BAG IVPB SCH ×4 (00:26→23:44)
[2017-05-16] MEDS: SODIUM CHLORIDE 0.9% 1,000 ML IV SCH ×2 (05:58→13:49)
[2017-05-16 07:09] LABS: Basophils # (A) 0.1 k/uL (0-0.2); Basophils % (A) 1 %; Eosinophils # (A) 0.2 k/uL (0-0.7); Eosinophils % (A) 3 %; HCT 32.8 % (34.0-46.0); HGB 11.3 gm/dL (11.4-16.0); Lymphocytes # (A) 1.6 k/uL (1.0-4.8); Lymphocytes % (A) 24 %; MCH 33.1 pg (25.0-35.0); MCHC 34.4 g/dL (31.0-37.0); MCV 96.3 fL (80.0-100.0); Mean Platelet Volume 7.7; Monocytes # (A) 0.6 k/uL (0-1.0); Monocytes % (A) 9 %; Neutrophils # (A) 3.9 k/uL (1.3-7.7); Neutrophils % (A) 60 %; Platelet Count 248 k/uL (150-450); RBC 3.41 m/uL (3.80-5.40); RDW 12.1 % (11.5-15.5); WBC 6.4 k/uL (3.8-10.6)
[2017-05-16 07:19] LABS: ALT 42 U/L (9-52); AST 23 U/L (14-36); Albumin 3.1 g/dL (3.5-5.0); Alkaline Phosphatase 70 U/L (38-126); Anion Gap 8 mmol/L; Blood Urea Nitrogen 16 mg/dL (7-17); Calcium 8.6 mg/dL (8.4-10.2); Carbon Dioxide 26 mmol/L (22-30); Chloride 108 mmol/L (98-107); Glucose 90 mg/dL (74-99); Potassium 4.1 mmol/L (3.5-5.1); Sodium 142 mmol/L (137-145); Total Bilirubin 0.8 mg/dL (0.2-1.3); Total Protein 5.6 g/dL (6.3-8.2)
[2017-05-16] MEDS: DULoxetine HCL 60 MG CAPSULE.DR PO SCH (08:46)
[2017-05-16] MEDS: ONDANSETRON 4 MG/2 ML VIAL IVP PRN (09:01)
[2017-05-16] MEDS ORDERED: SODIUM CHLORIDE 0.9% 1,000 ML IV ONE (12:19)
[2017-05-16] MEDS ORDERED: PANTOPRAZOLE 40 MG TABLET PO STA (12:19)
[2017-05-16] MEDS ORDERED: BUTALB/APAP/CAFF 50-325-40MG TAB PO STA (12:19)
--- NOTE | 2017-05-16 12:19 | P.PN ---
Subjective Progress Note Date: 05/16/17 the patient is a pleasant 28-year-old female admitted for hydrops cholecystitis. She reports recurrent epigastric abdominal pain following a low- fat diet. She complains of a headache. She has history of tobacco use. She drinks daily at least 3 cups of coffee daily. She does not drink much water. Objective - Vital Signs Vital signs: Vital Signs Temp 98.1 F 05/16/17 07:00 Pulse 76 05/16/17 07:00 Resp 16 05/16/17 07:00 BP 99/48 05/16/17 07:00 Pulse Ox 96 05/16/17 07:00 Intake & Output 05/15/17 05/16/17 05/16/17 18:59 06:59 18:59 Weight 69 kg Other: Voiding Method Toilet Toilet # Voids 1 - Exam GENERAL: Well developed and in no acute distress. Pleasant. HEENT: No sclera icterus. Extraocular movements grossly intact. Moist buccal mucosa. Head is atraumatic, normocephalic. Hears conversational speech. No nasal drainage. NECK: Supple without lymphadenopathy. No JV distention. CHEST: Non-labored respirations and equal bilateral excursions. CARDIOVASCULAR: Regular rate and rhythm. Palpable 2+ radial pulses. ABDOMEN: Soft, tender at right upper quadrant. Nondistended. MUSCULOSKELETAL: No clubbing, cyanosis or edema. NEUROLOGIC: No focal or lateralizing signs. PSYCH: Appropriate affect. Alert and oriented to person, place and time. SKIN: Good skin turgor. Well perfused. - Labs CBC & Chem 7: 05/16/17 06:35 05/16/17 06:35 Labs: Abnormal Lab Results - Last 24 Hours (Table) 05/16/17 05/16/17 Range/Units 06:35 06:35 RBC 3.41 L (3.80-5.40) m/uL Hgb 11.3 L (11.4-16.0) gm/dL Hct 32.8 L (34.0-46.0) % Chloride 108 H (98-107) mmol/L Total Protein 5.6 L (6.3-8.2) g/dL Albumin 3.1 L (3.5-5.0) g/dL Microbiology - Last 24 Hours (Table) 04/07/18 11:29 Urine Culture - Preliminary Urine,Clean Catch Assessment and Plan (1) Tobacco use Current Visit: Yes Status: Acute Code(s): Z72.0 - TOBACCO USE SNOMED Code( s): 031711780 (2) Caffeine abuse Current Visit: Yes Status: Acute Code(s): F15.10 - OTHER STIMULANT ABUSE, UNCOMPLICATED SNOMED Code(s): 645207680 (3) Headache Current Visit: Yes Status: Acute Code(s): R51 - HEADACHE SNOMED Code(s): 56589730 (4) Constipation Current Visit: Yes Status: Acute Code(s): K59.00 - CONSTIPATION, UNSPECIFIED SNOMED Code(s): 93236474 (5) Acute cholecystitis Current Visit: Yes Status: Acute Code(s): K81.0 - ACUTE CHOLECYSTITIS SNOMED Code(s): 15656836 Plan: 1. IV fluid hydration 2. Tobacco cessation education performed, greater than 3 minutes. 3. Fioricet for headaches. 4. Stool softener. 5. Caffeine withdrawal symptoms reviewed. 6. NPO after midnight. 7. Recommend no fat diet. 8. Cholecystectomy tomorrow.
[2017-05-16] MEDS: HYDROcodone/APAP 5-325MG 1 EACH TAB PO PRN ×2 (13:51→17:36)
[2017-05-16] MEDS: ENOXAPARIN 40 MG/0.4 ML SYRINGE SQ SCH (14:07)
[2017-05-16] MEDS: BISACODYL 5 MG TABLET.DR PO SCH (16:01)
[2017-05-16] MEDS: PANTOPRAZOLE 40 MG TABLET PO SCH (16:02)
[2017-05-16] MEDS: MORPHINE ORAL SOLN 10 MG/5 ML CUP PO PRN ×2 (16:02→23:47)
[2017-05-16] MEDS: DULoxetine HCL 30 MG CAPSULE.DR PO SCH (20:59)
[2017-05-17] MEDS: SODIUM CHLORIDE 0.9% 1,000 ML IV SCH ×2 (05:35→19:27)
[2017-05-17 07:17] LABS: Basophils # (A) 0.1 k/uL (0-0.2); Basophils % (A) 1 %; Eosinophils # (A) 0.1 k/uL (0-0.7); Eosinophils % (A) 2 %; HCT 31.2 % (34.0-46.0); HGB 10.2 gm/dL (11.4-16.0); Lymphocytes # (A) 1.5 k/uL (1.0-4.8); Lymphocytes % (A) 23 %; MCH 32.1 pg (25.0-35.0); MCHC 32.7 g/dL (31.0-37.0); Mean Platelet Volume 8.2; Monocytes # (A) 0.5 k/uL (0-1.0); Monocytes % (A) 8 %; Neutrophils # (A) 4.2 k/uL (1.3-7.7); Neutrophils % (A) 64 %; Platelet Count 212 k/uL (150-450); RBC 3.18 m/uL (3.80-5.40); RDW 12.1 % (11.5-15.5); WBC 6.6 k/uL (3.8-10.6)
[2017-05-17 07:34] LABS: ALT 59 U/L (9-52); AST 49 U/L (14-36); Albumin 2.9 g/dL (3.5-5.0); Alkaline Phosphatase 108 U/L (38-126); Anion Gap 8 mmol/L; Blood Urea Nitrogen 12 mg/dL (7-17); Calcium 8.1 mg/dL (8.4-10.2); Carbon Dioxide 24 mmol/L (22-30); Chloride 108 mmol/L (98-107); Glucose 80 mg/dL (74-99); Potassium 3.9 mmol/L (3.5-5.1); Sodium 140 mmol/L (137-145); Total Bilirubin 1.7 mg/dL (0.2-1.3); Total Protein 5.2 g/dL (6.3-8.2)
--- NOTE | 2017-05-17 07:53 | P.HPADDEND ---
H&P Addendum H&P Addendum Date: 05/17/17 Patient with hydrops cholecystitis. Recommend proceeding with robotic cholecystectomy.
[2017-05-17] MEDS: PANTOPRAZOLE 40 MG TABLET PO SCH ×2 (08:00→18:04)
[2017-05-17] MEDS: BISACODYL 5 MG TABLET.DR PO SCH (08:00)
[2017-05-17] MEDS: PIPERACILLIN-TAZOBACTAM 3.375 GM in DEXTROSE/WATER 1 50ML.BAG IVPB SCH ×3 (08:03→23:43)
[2017-05-17] MEDS: DULoxetine HCL 60 MG CAPSULE.DR PO SCH (09:25)
[2017-05-17] MEDS: ONDANSETRON 4 MG/2 ML VIAL IVP PRN ×2 (11:13→18:26)
[2017-05-17] MEDS: MORPHINE ORAL SOLN 10 MG/5 ML CUP PO PRN (12:59)
[2017-05-17] MEDS ORDERED: SODIUM CHLORIDE 0.9% 1,000 ML IV ONE (14:08)
[2017-05-17] MEDS ORDERED: MIDAZOLAM 2 MG/2 ML VIAL IVP ONE (14:15)
[2017-05-17] MEDS: ENOXAPARIN 40 MG/0.4 ML SYRINGE SQ SCH (14:21)
[2017-05-17] MEDS ORDERED: BUPIVACAINE (PF) 0.25% 30 ML VIAL SQ ONE (14:55)
[2017-05-17] MEDS ORDERED: LACTATED RINGERS 1,000 ML IV ONE ×2 (14:59→16:14)
[2017-05-17] MEDS ORDERED: NEOSTIGMINE 1 MG/ML 10 ML VIAL ONE (15:01)
[2017-05-17] MEDS ORDERED: ceFAZolin 1,000 MG VIAL ONE (15:01)
[2017-05-17] MEDS ORDERED: LIDOCAINE 1% INJ 10MG/ML (20 ML MDV) ONE (15:01)
[2017-05-17] MEDS ORDERED: GLYCOPYRROLATE 0.2 MG/ML 2 ML VIAL ONE (15:01)
[2017-05-17] MEDS ORDERED: fentaNYL (PF) 50 MCG/ML 2 ML AMP ONE (15:01)
[2017-05-17] MEDS ORDERED: MORPHINE SULFATE 10 MG/ML SYRINGE ONE (15:01)
[2017-05-17] MEDS ORDERED: ROCURONIUM BROMIDE 10 MG/ML 10 ML VIAL IV ONE (15:01)
[2017-05-17] MEDS ORDERED: PROPOFOL 10 MG/ML 20 ML VIAL IV ONE (15:01)
[2017-05-17] MEDS ORDERED: SUCCINYLCHOLINE CHLORIDE 100 MG/5 ML SYR IV ONE (15:01)
[2017-05-17] MEDS ORDERED: SODIUM CHLORIDE 0.9% 50 ML with ceFAZolin 2,000 MG IV ONE ×2 (15:15)
[2017-05-17] MEDS ORDERED: MORPHINE SULFATE 4MG/4ML SYRG IVP PRN (16:35)
--- NOTE | 2017-05-17 16:35 | P.OP ---
Date of Procedure: 05/17/17 Description of Procedure: SURGEON: KYARA MACIAS MD LEVELING MACHINE OPERATOR: RAMIN FLORES PREOPERATIVE DIAGNOSES: 1. Acute cholecystitis due to cystic duct obstruction with hydrops 2. Family history of gallbladder disease. 3. Gastroesophageal reflux disease. 4. Tobacco abuse POSTOPERATIVE DIAGNOSES: 1. Acute cholecystitis due to cystic duct obstruction with hydrops 2. Family history of gallbladder disease. 3. Gastroesophageal reflux disease. 4. Tobacco abuse OPERATION: Robotic-assisted da Nenita Xi laparoscopic cholecystectomy, multiport without FIREFLY ESTIMATED BLOOD LOSS: 75 mL. SPECIMENS REMOVED: Gallbladder. COMPLICATIONS: None. OPERATIVE FINDINGS: 1. Hydrops cholecystitis INDICATIONS: The patient is a 36-year-old female who presents with acute cholelcystitis. Surgical intervention with a laparoscopic cholecystectomy was described at length including injury to the biliary tree, bleeding, infection, need for further surgery. Informed consent was obtained. Robotic assisted laparoscopic approach was described. Benefits and risks of the procedure including but not limited to bleeding, infection, injury to the biliary tree was described. Informed consent was obtained. DESCRIPTION OF PROCEDURE: Patient was brought to the operating room, placed in supine position. After general induction, the abdomen had been prepped and draped in standard sterile fashion. The robotic da Nenita XI system was primed. After a timeout protocol was performed, the patient had been prepped and draped in standard sterile fashion. The robot was docked along the left lateral abdomen. The patient was repositioned in reverse Trendelenburg position. Please note prior to docking of the robot; however, a 5 mm 0 degrees laparoscopic trocar entry was performed along the left upper quadrant. Next, two 8 mm robotic ports were placed along the right upper abdomen. The camera 8-mm port was maintained along the epigastrium. Another 8 mm port was placed along the left upper abdominal wall after exchanging the 5 mm port. Please note that the ports were placed at least 10 to 15 cm away from the target anatomy of the gallbladder. Using a grasper for arm 1, a grasper for arm 2, including hook cautery for arm 4 , the robotic system was docked and primed as described. Instruments were interchanged by the registered medical assistant including hook cautery, Bovie cautery scissors and clip appliers. I had sat at the console. Adhesions were identified along the infundibulum of the gallbladder and addressed using hook cautery. A dome down technique was performed as moderate edema was found along the infundibulum and cystic structures. Once the gallbladder was freed to the infundibulum, attention was brought to the cystic structures. The gallbladder fundus was retracted over the dome of the liver. Using a grasper, the cystic duct including the cystic artery was carefully skeletonized. Using a clip tool room gear machine operator 2 large PLASTIC clips were placed proximally, and 1 clip was placed distally along the cystic duct and then cauterized with the cautery. Again care was taken to avoid any injury to the biliary tree as the common bile duct was clearly visualized during this portion of dissection. Next, the cystic artery was cauterized. Electro-Bovie cautery was used to remove the gallbladder from the hepatic fossa. Hemostasis was checked and found to be adequate. The robot was undocked. I re-scrubbed into the case. Using a 10 mm Endo Catch bag via the left upper quadrant incision, the specimen was removed from the abdominal cavity. All pneumoperitoneum instruments were evacuated from the abdominal cavity. The incisions were reapproximated using 4-0 Monocryl in an interrupted subcuticular fashion. Fascial defect oversewn using a Tyree-Milvia and 0 Vicryl. Please note along the trocar sites, local anesthetic was placed as a field block prior to insertion of all instruments. Dermabond was applied to the skin. At the end of the procedure needle, sponge, and instrument count had been verified correct by the surgical forceps fabricator. The patient was transferred to postanesthesia care unit in stable condition. Intraoperative films were shared with the patient's family who were very pleased with the level of care. Console time 29 minutes
[2017-05-17] MEDS ORDERED: MORPHINE SULFATE 10 MG/ML SYRINGE IVP ONE (17:10)
[2017-05-17] MEDS: MORPHINE SULFATE 10 MG/ML SYRINGE IVP ONE ×2 (17:10→17:20)
[2017-05-17] MEDS ORDERED: MORPHINE SULFATE (PF) 1 MG/ML AMP IV ONE (17:10)
[2017-05-17] MEDS: DULoxetine HCL 30 MG CAPSULE.DR PO SCH (21:00)
[2017-05-17] MEDS: FAMOTIDINE 20 MG TAB PO SCH (21:01)
[2017-05-18] MEDS: PIPERACILLIN-TAZOBACTAM 3.375 GM in DEXTROSE/WATER 1 50ML.BAG IVPB SCH (07:07)
[2017-05-18] MEDS: ONDANSETRON 4 MG/2 ML VIAL IVP PRN (07:07)
[2017-05-18 07:11] VITALS: BP 119/75; PULSE 80; RESP 16; TEMP 98.5
[2017-05-18 07:53] LABS: Basophils # (A) 0.1 k/uL (0-0.2); Basophils % (A) 1 %; Eosinophils % (A) 0 %; HCT 34.5 % (34.0-46.0); HGB 11.5 gm/dL (11.4-16.0); Lymphocytes # (A) 0.9 k/uL (1.0-4.8); Lymphocytes % (A) 9 %; MCH 32.4 pg (25.0-35.0); MCHC 33.4 g/dL (31.0-37.0); MCV 96.9 fL (80.0-100.0); Mean Platelet Volume 8.5; Monocytes # (A) 0.5 k/uL (0-1.0); Monocytes % (A) 5 %; Neutrophils # (A) 8.7 k/uL (1.3-7.7); Neutrophils % (A) 85 %; Platelet Count 260 k/uL (150-450); RBC 3.56 m/uL (3.80-5.40); RDW 11.8 % (11.5-15.5); WBC 10.2 k/uL (3.8-10.6)
[2017-05-18 08:01] LABS: ALT 73 U/L (9-52); AST 58 U/L (14-36); Albumin 3.4 g/dL (3.5-5.0); Alkaline Phosphatase 129 U/L (38-126); Anion Gap 13 mmol/L; Blood Urea Nitrogen 10 mg/dL (7-17); Calcium 8.8 mg/dL (8.4-10.2); Carbon Dioxide 21 mmol/L (22-30); Chloride 104 mmol/L (98-107); Glucose 86 mg/dL (74-99); Potassium 3.9 mmol/L (3.5-5.1); Sodium 138 mmol/L (137-145); Total Bilirubin 1.3 mg/dL (0.2-1.3); Total Protein 6.1 g/dL (6.3-8.2)
[2017-05-18] MEDS: PANTOPRAZOLE 40 MG TABLET PO SCH (09:23)
[2017-05-18] MEDS: FAMOTIDINE 20 MG TAB PO SCH (09:23)
[2017-05-18] MEDS: BISACODYL 5 MG TABLET.DR PO SCH (09:23)
[2017-05-18] MEDS: SODIUM CHLORIDE 0.9% 1,000 ML IV SCH (09:23)
[2017-05-18] MEDS: DULoxetine HCL 60 MG CAPSULE.DR PO SCH (09:23)
--- NOTE | 2017-05-18 10:23 | P.DS ---
<Loreto Johnson - Last Filed: 05/18/17 10:12> Providers Date of admission: 05/16/17 12:21 Expected date of discharge: 05/18/17 Attending physician: Emily Parker Primary care physician: [facility] Course: 36-year-old female presented to the emergency room with acute onset of right upper quadrant abdominal pain onset 24 hours prior. Patient had been in the emergency room the day before with chest discomfort and had a full cardiac workup which was negative. Patient gives a family history of gallbladder disease. Patient stated her grandmother and her brother had her gallbladder removed. She also reports having esophageal reflux disease. In the emergency room patient stated that she had eaten meatloaf and mashed potatoes and gravy several hours later her symptoms appeared. Patient had a gallbladder ultrasound which did show hydrops cholecystitis patient was admitted to the services of the attending and did undergo robotic-assisted [place] laparoscopic cholecystectomy on May 17 for acute cholecystitis due to cystic duct obstruction with hydrops. There were no postop events. Patient was felt to be hemodynamically stable on the to be discharged the white count was 10.2 hemoglobin 11.5 electrolytes within normal limits AST was 58 ALT 73 total bili 1.3 On the day of discharge patient was up ambulatory on the unit tolerating a diet belching pain medication effective for pain control surgical dressing sites dry Impression discharge diagnosis Present on admission acute right upper quadrant pain suspect due to acute cholecystitis Active current every day smoker Esophageal reflux disease Family history of gallbladder disease Postop May 17 robotic-assisted da [facility] laparoscopic cholecystectomy for acute cholecystitis due to cystic duct obstructive with hydrops Leukocytosis likely reactive The above impression and plan of care have been discussed and directed by signing physician. Loreto Johnson nurse practitioner acting as scribe for signing physician. Patient Condition at Discharge: Good Plan - Discharge Summary Discharge Rx Participant: No New Discharge Prescriptions: New HYDROcodone/APAP 5-325MG [Jasper 5-325] 1 each PO Q4HR PRN #15 tab PRN Reason: Mild Pain Ibuprofen [Motrin] 200 mg PO Q4H #30 tab Docusate [Colace] 100 mg PO DAILY PRN #30 capsule PRN Reason: Constipation Continue Ranitidine HCl 300 mg PO HS DULoxetine HCL [Cymbalta] 30 mg PO HS DULoxetine HCL [Cymbalta] 60 mg PO DAILY Discharge Medication List Ranitidine HCl 300 mg PO HS 08/23/14 [History] DULoxetine HCL [Cymbalta] 30 mg PO HS 05/13/17 [History] DULoxetine HCL [Cymbalta] 60 mg PO DAILY 05/13/17 [History] Docusate [Colace] 100 mg PO DAILY PRN #30 capsule 05/18/17 [Rx] HYDROcodone/APAP 5-325MG [Jasper 5-325] 1 each PO Q4HR PRN #15 tab 05/18/17 [Rx] Ibuprofen [Motrin] 200 mg PO Q4H #30 tab 05/18/17 [Rx] Follow up Appointment(s)/Referral(s): Gianluca Gasca MD [Primary Care Provider] - 05/25/17 2:00 pm Emily Parker MD [STAFF PHYSICIAN] - 06/08/17 11:00 am Patient Instructions/Handouts: Hydrocodone/Acetaminophen (By mouth), Ibuprofen (By mouth), Laxative, Stool Softeners (By mouth), Laparoscopic Cholecystectomy ( DC) Activity/Diet/Wound Care/Special Instructions: No tub bath for six weeks. Shower daily. No lifting over 10 pounds for the next 6 weeks. Soft low-fat diet Will take [id number] stool softeners to avoid constipation Patient has been advised to stop smoking cigarettes May use ice packs to surgical site. No driving while taking narcotic for pain. May return to work after seen in a follow-up visit with Dr. Parker Do not removed the plastic dressings from surgical incision sites May use [id number] Motrin for pain relief as needed for surgical discomfort Discharge Disposition: HOME SELF-CARE <Emily Parker - Last Filed: 05/19/17 11:00> - Discharge Diagnosis(es) (1) Tobacco use Status: Acute (2) Caffeine abuse Status: Acute (3) Headache Status: Acute (4) Constipation Status: Acute (5) Acute cholecystitis Status: Acute
[2017-05-18] MEDS: HYDROcodone/APAP 5-325MG 1 EACH TAB PO PRN ×2 (11:16→15:40)
== END 2017-05-18 15:45 | disposition home or self-care (01) | DRG 418 ==
LOC: EC 10:25 → 5MS5E 13:25 → OBSVTOIN 05-16 12:21
PROVIDERS: ADMIT Surgery Plastic and Reconstructive Surgery; ATTEND Surgery Plastic and Reconstructive Surgery
PROC: 0FT44ZZ Resection of Gallbladder, Percutaneous Endoscopic Approach (ICD-10-PCS; principal; 2017-05-16)
PROC: 8E0W4CZ Robotic Assisted Procedure of Trunk Region, Percutaneous Endoscopic Approach (ICD-10-PCS; 2017-05-16)
DX: K80.01 Calculus of gallbladder with acute cholecystitis with obstruction (principal); K82.1 Hydrops of gallbladder; F32.9 Major depressive disorder, single episode, unspecified; F41.9 Anxiety disorder, unspecified; K21.9 Gastro-esophageal reflux disease without esophagitis; K59.00 Constipation, unspecified; R51 Headache; F40.240 Claustrophobia; F17.210 Nicotine dependence, cigarettes, uncomplicated; F15.10 Other stimulant abuse, uncomplicated; D72.829 Elevated white blood cell count, unspecified; Z87.898 Personal history of other specified conditions; Z87.442 Personal history of urinary calculi; Z79.899 Other long term (current) drug therapy; Z98.51 Tubal ligation status; Z82.3 Family history of stroke; Z83.3 Family history of diabetes mellitus; Z82.49 Family history of ischemic heart disease and other diseases of the circulatory system; Z80.9 Family history of malignant neoplasm, unspecified; Z84.89 Family history of other specified conditions
CPT/HCPCS: 36415; 76705; 80053; 81001; 81025; 82150; 82550; 82553; 83690; 84484; 85025; 87086; 88304; 96374; 96375; 99285